=== PATIENT | male | born 1930 | race Caucasian/White ===

== ENCOUNTER 2021-04-19 21:44 | Emergency (ER) | payer SELFPAY ==
[2021-04-19] MEDS ORDERED: ONDANSETRON 4 MG/2 ML VIAL ONE (22:30)
[2021-04-19] MEDS ORDERED: MORPHINE 4 MG/ML SYR ONE (22:30)
[2021-04-19 22:43] LABS: Absolute Lymphocytes (CBC) 3.1 K/uL (0.7-4.9); Basophils % 0.7 % (0-1.3); Hematocrit 40.2 % (39.6-49.0); Lymphocytes % 35.1 % (15.3-44.8); RBC Red Blood Cell Count 4.38 M/uL (4.33-5.43)
[2021-04-19 22:51] LABS: Protime INR 1.14
[2021-04-19 23:02] LABS: ALT/SGPT 21 U/L (12-78); AST/SGOT 20 U/L (15-37); Albumin 3.2 g/dL (3.4-5.0); Alkaline Phosphatase 61 U/L (45-117); BUN Blood Urea Nitrogen 18 mg/dL (7-18); Bicarbonate 26 mmol/L (21-32); Bilirubin Direct 0.2 mg/dL (0-0.2); Bilirubin Total 0.6 mg/dL (0.2-1.0); Glucose Level 191 mg/dL (74-106); Magnesium 1.9 mg/dL (1.8-2.4); NT PRO-BNP 87 pg/mL (<450); Potassium 4.2 mmol/L (3.5-5.1); Protein, Total 6.8 g/dL (6.4-8.2); Sodium Level 132 mmol/L (136-145); Troponin (Emerg Dept Use Only) < 0.02 ng/mL (0.0-0.045)
[2021-04-20] MEDS ORDERED: ONDANSETRON 4 MG/2 ML VIAL ONE
[2021-04-20] MEDS ORDERED: NA CHLORIDE 0.9% 500 ML ONE (00:01)
[2021-04-20] MEDS ORDERED: MORPHINE 4 MG/ML SYR ONE ×2 (00:01→03:11)
--- NOTE | 2021-04-20 01:27 | EDPHYS ---
Physician Documentation [facility] Name: Jose Carrero Age: 89 yrs Sex: Male : 1930 Arrival Date: 04/19/2021 Time: 21:55 Bed 20 Private MD: ED Physician Ravinder Mcpherson HPI: 04/19 22:12 This 89 yrs old Male presents to ER via EMS with complaints of Fall. cp 22:12 Details of fall: The patient fell from an upright position, while walking, and struck a cp tile surface. Onset: The symptoms/episode began/occurred just prior to arrival. Associated injuries: The patient sustained right upper leg, decreased range of motion, deformity, painful injury. Severity of symptoms: in the emergency department the symptoms are unchanged, despite EMS interventions. Historical: - Allergies: 04/20 02:28 PENICILLINS; ea - Immunization history:: Adult Immunizations up to date. - Immunization history: Last tetanus immunization: unknown. - Social history:: Smoking status: unknown. ROS: 04/19 22:13 Constitutional: Negative for body aches, chills, fever. cp Cardiovascular: Negative for chest pain. Respiratory: Negative for cough, shortness of breath, wheezing. Abdomen/GI: Negative for abdominal pain, nausea, vomiting, and diarrhea. MS/extremity: Positive for injury or acute deformity, decreased range of motion, pain, swelling, tenderness, of the right upper leg. Neuro: Negative for altered mental status, headache, loss of consciousness, weakness. All other systems are negative. Exam: 22:17 Constitutional: The patient appears in no acute distress, alert, awake, cp non-diaphoretic, non-toxic, well developed, well nourished, obese. 22:17 Head/Face: Normocephalic, atraumatic. cp 22:17 Eyes: Periorbital structures: appear normal, Pupils: equal, round, and reactive to light and accomodation, Extraocular movements: intact throughout, Conjunctiva: normal, no exudate, no injection, Sclera: no appreciated abnormality, Lids and lashes: appear normal, bilaterally. 22:17 ENT: External ear(s): are unremarkable, Nose: is normal, Mouth: Lips: moist, Oral mucosa: moist, Posterior pharynx: Airway: no evidence of obstruction, patent. 22:17 Neck: C-spine: vertebral tenderness, is not appreciated, crepitus, is not appreciated, ROM/movement: is normal, is supple, without pain, no range of motions limitations. 22:17 Chest/axilla: Inspection: normal, Palpation: is normal, no crepitus, no tenderness. 22:17 Cardiovascular: Rate: normal, Rhythm: regular, Pulses: Pulses are 2+ in right dorsalis pedis artery and left dorsalis pedis artery. 22:17 Respiratory: the patient does not display signs of respiratory distress, Respirations: normal, no use of accessory muscles, no retractions, labored breathing, is not present, Breath sounds: are clear throughout, no decreased breath sounds. 22:17 Abdomen/GI: Inspection: obese Bowel sounds: active, all quadrants, Palpation: abdomen is soft and non-tender, in all quadrants, rebound tenderness, is not appreciated, involuntary guarding, is not appreciated. 22:17 Back: pain, is absent. 22:17 Musculoskeletal/extremity: Extremities: grossly normal except: noted in the right upper leg: decreased ROM, deformity, swelling, tenderness, the right upper leg Severe pain noted. 22:17 Neuro: Orientation: to person, place \T\ time. Mentation: is normal. 23:17 ECG was reviewed by the Attending Physician. cp Vital Signs: 22:05 BP 124 / 61; Pulse 72; Resp 20; Pulse Ox 100% ; ea 22:06 Temp 97.7; ea 23:30 BP 103 / 58; Pulse 68; Resp 18; Pulse Ox 99% on R/A; ea 04/20 00:00 BP 110 / 60; Pulse 80; Resp 18; Pulse Ox 98% on R/A; ea 01:00 BP 114 / 60; Pulse 80; Resp 16; Pulse Ox 96% ; ea 02:29 BP 108 / 61; Pulse 88; Resp 18; Pulse Ox 100% on R/A; ea 03:08 BP 123 / 64; Pulse 87; Resp 17; Temp 98; Pulse Ox 98% ; ea Vaughan Coma Score: 04/19 22:05 Eye Response: spontaneous(4). Verbal Response: oriented(5). Motor Response: obeys ea commands(6). Total: 15. 23:30 Eye Response: spontaneous(4). Verbal Response: oriented(5). Motor Response: obeys ea commands(6). Total: 15. 04/20 00:00 Eye Response: spontaneous(4). Verbal Response: oriented(5). Motor Response: obeys ea commands(6). Total: 15. 01:00 Eye Response: spontaneous(4). Verbal Response: oriented(5). Motor Response: obeys ea commands(6). Total: 15. 02:29 Eye Response: spontaneous(4). Verbal Response: oriented(5). Motor Response: obeys ea commands(6). Total: 15. 03:08 Eye Response: spontaneous(4). Verbal Response: oriented(5). Motor Response: obeys ea commands(6). Total: 15. Trauma Score (Adult): 04/19 22:05 Eye Response: spontaneous(1); Verbal Response: oriented(1); Motor Response: obeys ea commands(2); Systolic BP: > 89 mm Hg(4); Respiratory Rate: 10 to 29 per min(4); Perfecto Score: 15; Trauma Score: 12 MDM: 22:00 Patient medically screened. 04/20 01:20 Data reviewed: vital signs, nurses notes, lab test result(s), EKG, radiologic studies, cp CT scan, plain films. 01:20 Test interpretation: by ED physician or midlevel provider: ECG, plain radiologic cp studies, xrays of right femur show displaced oblique fracture of mid femur. Counseling: I had a detailed discussion with the patient and/or guardian regarding: the historical points, exam findings, and any diagnostic results supporting the discharge/admit diagnosis, lab results, radiology results, the need to transfer to another facility, [facility] does not immediately have the required specialist. Response to treatment: Pain markedly improved. 01:45 Physician consultation: acceptance by DR Rojas \T\[facility] without consult. cp 04/19 22:07 Order name: Basic Metabolic Panel cp 04/19 22:07 Order name: CBC with Diff cp 04/19 22:07 Order name: LFT's cp 04/19 22:07 Order name: Magnesium cp 04/19 22:07 Order name: NT PRO-BNP; Complete Time: 23:07 cp 04/19 22:07 Order name: PT-INR; Complete Time: 23:07 cp 04/19 21:55 Order name: XRAY Femur RIGHT ea 04/19 22:07 Order name: XRAY Pelvis cp 04/19 22:07 Order name: Troponin (emerg Dept Use Only); Complete Time: 23:07 cp 04/19 22:07 Order name: Basic Metabolic Panel; Complete Time: 23:07 EDMS 04/19 22:07 Order name: CBC with Automated Diff; Complete Time: 22:50 EDMS 04/19 22:50 Interpretation: Normal except: HGB 13.4; MPV 7.0. cp 04/19 22:07 Order name: Liver (Hepatic) Function; Complete Time: 23:07 EDMS 04/19 22:07 Order name: Magnesium; Complete Time: 23:07 EDMS 04/19 22:07 Order name: XRAY Chest (1 view) 04/19 22:07 Order name: EKG; Complete Time: 22:07 cp 04/19 22:07 Order name: Cardiac monitoring; Complete Time: 23:06 cp 04/19 22:07 Order name: EKG - Nurse/Tech; Complete Time: 23:06 cp 04/19 22:07 Order name: IV Saline Lock; Complete Time: 22:32 cp 04/19 22:07 Order name: Labs collected and sent; Complete Time: 22:32 cp 04/19 22:11 Order name: CT Traumagram (Head C Spine CAP W Con) 04/19 22:07 Order name: O2 Per Protocol; Complete Time: 22:32 cp 04/19 22:07 Order name: O2 Sat Monitoring; Complete Time: 22:32 cp 04/19 22:17 Order name: Splint: right long leg; Complete Time: 00:51 cp 04/19 23:50 Order name: Khan; Complete Time: 00:51 cp EC/28 23:17 Rate is 70 beats/min. Rhythm is regular. CA interval is normal. QRS interval is normal. cp QT interval is normal. Interpreted by me. Reviewed by me. Administered Medications: 22:12 CANCELLED (Duplicate Order): Zofran (Ondansetron) 4 mg IVP once; over 2 minutes ea 22:13 Not Given (Duplicate Order): morphine 4 mg IVP once; RASS on ADMIN: Combtv4, Very ea Agttd3, Agttd2, Rstlss1, AlertClm0, Drwsy-1, Lt Sdtn-2, Mod Sdtn-3, Dp Sdtn-4, UnArsble-5 22:32 Drug: morphine 4 mg Route: IVP; Site: left antecubital; 04/20 01:33 Follow up: Response: No adverse reaction 04/19 22:32 Drug: Zofran (Ondansetron) 4 mg Route: IVP; Site: left antecubital; ea 04/20 01:34 Follow up: Response: No adverse reaction 04/19 23:44 Drug: NS 0.9% 500 ml Route: IV; Rate: 250 ml/hr; Site: left antecubital; ea 04/20 01:34 Follow up: Response: No adverse reaction; IV Status: Completed infusion; IV Intake: ea 250ml 04/19 23:45 Drug: Zofran (Ondansetron) 4 mg Route: IVP; Site: left antecubital; 04/20 01:34 Follow up: Response: No adverse reaction 04/19 23:45 Drug: morphine 4 mg Route: IVP; Site: left forearm; 04/20 01:34 Follow up: Response: No adverse reaction 03:07 Drug: morphine 4 mg Route: IVP; Site: left antecubital; ea 03:07 Drug: NS 0.9% 1000 ml Route: IV; Rate: 50 ml/hr; Site: left antecubital; Disposition: 02:06 Chart complete. 07:46 Co-signature as Attending Physician, Ravinder Mcpherson MD. 7 Disposition: 04/20/21 01:26 Transfer ordered to [facility]. Diagnosis is Displaced oblique fracture of shaft of right femur. - Reason for transfer: Higher level of care. - Accepting physician is DR Rojas. - Condition is Stable. - Problem is new. - Symptoms have improved. Signatures: Dispatcher [employer] EDMS Zafar Mohan PA PA cp Antunez, Elena, RN RN ea Holmes, Maurice, MD MD 7 Corrections: (The following items were deleted from the chart) 04/19 22:12 22:07 Zofran (Ondansetron) 4 mg IVP once; over 2 minutes ordered. marjan arreguin 04/20 02:00 01:26 04/20/2021 01:26 Transfer ordered to [facility]. Diagnosis is cp Displaced oblique fracture of shaft of right femur. Reason for transfer: Higher level of care. Accepting physician is Doctor. Condition is Stable. Problem is new. Symptoms have improved. cp 02:40 01:40 CORONAVIRUS+ ordered. EDMS EDMS 03:22 02:00 04/20/2021 01:26 Transfer ordered to [facility]. Diagnosis is ea Displaced oblique fracture of shaft of right femur. Reason for transfer: Higher level of care. Accepting physician is DR Rojas. Condition is Stable. Problem is new. Symptoms have improved. cp
--- NOTE | 2021-04-20 01:27 | ER ---
Nurse's Notes [facility] Name: Jose Carrero Age: 89 yrs Sex: Male : 1930 Arrival Date: 04/19/2021 Time: 21:55 Bed 20 Private MD: Diagnosis: Displaced oblique fracture of shaft of right femur Presentation: 04/19 21:56 Chief complaint: EMS states: Reports pt fell at home while standing on the bath tub. ea EMS reports pulses present, deformity noted to right leg. 100mcg of fentanyl per EMS. Coronavirus screen: At this time, the client does not indicate any symptoms associated with coronavirus-19. Ebola Screen: No symptoms or risks identified at this time. Initial Sepsis Screen: Does the patient meet any 2 criteria? No. Patient's initial sepsis screen is negative. Does the patient have a suspected source of infection? No. Patient's initial sepsis screen is negative. Risk Assessment: Do you want to hurt yourself or someone else? Patient reports no desire to harm self or others. Onset of symptoms was April 19, 2021. 21:56 Method Of Arrival: EMS: [facility] ea 21:56 Acuity: MARIAM 3 ea 22:06 Care prior to arrival: None. Mechanism of Injury: Fall from standing position. Trauma ea event details: Injury occurred in the [facility], Injury occurred: at home. Injury occurred: April 19, 2021 Injury occurred at: 22:06. Trauma Activation: Alert Physician: ED Physician; Name: ; Notified At: ; Arrived At: Physician: General Surgeon; Name: ; Notified At: ; Arrived At: Physician: Radiology; Name: ; Notified At: ; Arrived At: Physician: Respiratory; Name: ; Notified At: ; Arrived At: Physician: Lab; Name: ; Notified At: ; Arrived At: Historical: - Allergies: 04/20 02:28 PENICILLINS; ea - Immunization history:: Adult Immunizations up to date. - Immunization history: Last tetanus immunization: unknown. - Social history:: Smoking status: unknown. Screenin/28 21:56 Abuse screen: Denies threats or abuse. Nutritional screening: No deficits noted. ea Tuberculosis screening: No symptoms or risk factors identified. Fall Risk None identified. Primary Survey: 22:03 NO uncontrolled hemorrhage observed. Breathing/Chest: Respiratory pattern: regular, ea Respiratory effort: spontaneous, unlabored. Circulation: Skin color: pink, Skin temperature: warm. Disability Alert. Exposure/Environment: Obvious injury(ies) are noted at this time: swelling to right leg, extremity noted to be shorter than left. 23:00 Reassessment Airway Airway Patent Breathing/Chest Respiratory pattern Regular ea Respiratory effort Spontaneous Unlabored Disability Alert. Secondary Survey: 23:07 Musculoskeletal: Swelling present in right quadriceps. Injury Description: Deformity ea sustained to right quadriceps. Assessment: 21:56 General: Appears uncomfortable, Behavior is appropriate for age. Pain: Complains of ea pain in right leg. Neuro: Level of Consciousness is awake, alert, obeys commands, Oriented to person, place, time. Respiratory: Airway is patent Respiratory effort is even, unlabored, Respiratory pattern is regular, symmetrical. Derm: Skin is pink, warm \T\ dry. Musculoskeletal: Bony deformity noted of right quadriceps Swelling present in right quadriceps shortened right leg. 22:30 Reassessment: Patient and/or family updated on plan of care and expected duration. Pain ea level reassessed. Patient is alert, oriented x 3, equal unlabored respirations, skin warm/dry/pink. 23:50 Reassessment: Patient and/or family updated on plan of care and expected duration. Pain ea level reassessed. Patient is alert, oriented x 3, equal unlabored respirations, skin warm/dry/pink. 04/20 00:30 Reassessment: Patient and/or family updated on plan of care and expected duration. Pain ea level reassessed. Patient is alert, oriented x 3, equal unlabored respirations, skin warm/dry/pink. 01:18 Reassessment: Patient and/or family updated on plan of care and expected duration. Pain ea level reassessed. Patient is alert, oriented x 3, equal unlabored respirations, skin warm/dry/pink. 02:27 Reassessment: Patient and/or family updated on plan of care and expected duration. Pain ea level reassessed. Patient is alert, oriented x 3, equal unlabored respirations, skin warm/dry/pink. Report called to Donnell LAW at [facility]. 03:08 Reassessment: Patient and/or family updated on plan of care and expected duration. Pain ea level reassessed. Patient is alert, oriented x 3, equal unlabored respirations, skin warm/dry/pink. [facility] at facility for transport. Pt left ED via stretcher per EMS pt tolerating well. Vital Signs: 04/19 22:05 BP 124 / 61; Pulse 72; Resp 20; Pulse Ox 100% ; ea 22:06 Temp 97.7; ea 23:30 BP 103 / 58; Pulse 68; Resp 18; Pulse Ox 99% on R/A; ea 04/20 00:00 BP 110 / 60; Pulse 80; Resp 18; Pulse Ox 98% on R/A; ea 01:00 BP 114 / 60; Pulse 80; Resp 16; Pulse Ox 96% ; ea 02:29 BP 108 / 61; Pulse 88; Resp 18; Pulse Ox 100% on R/A; ea 03:08 BP 123 / 64; Pulse 87; Resp 17; Temp 98; Pulse Ox 98% ; ea Perfecto Coma Score: 04/19 22:05 Eye Response: spontaneous(4). Verbal Response: oriented(5). Motor Response: obeys ea commands(6). Total: 15. 23:30 Eye Response: spontaneous(4). Verbal Response: oriented(5). Motor Response: obeys ea commands(6). Total: 15. 04/20 00:00 Eye Response: spontaneous(4). Verbal Response: oriented(5). Motor Response: obeys ea commands(6). Total: 15. 01:00 Eye Response: spontaneous(4). Verbal Response: oriented(5). Motor Response: obeys ea commands(6). Total: 15. 02:29 Eye Response: spontaneous(4). Verbal Response: oriented(5). Motor Response: obeys ea commands(6). Total: 15. 03:08 Eye Response: spontaneous(4). Verbal Response: oriented(5). Motor Response: obeys ea commands(6). Total: 15. Trauma Score (Adult): 04/19 22:05 Eye Response: spontaneous(1); Verbal Response: oriented(1); Motor Response: obeys ea commands(2); Systolic BP: > 89 mm Hg(4); Respiratory Rate: 10 to 29 per min(4); Perfecto Score: 15; Trauma Score: 12 ED Course: 21:55 Patient arrived in ED. ea 21:58 Zafar Mohan PA is PHCP. cp 21:58 Ravinder Mcpherson MD is Attending Physician. cp 21:59 Triage completed. ea 21:59 Patient has correct armband on for positive identification. Bed in low position. Call ea light in reach. Side rails up X2. 21:59 Arm band placed on right wrist. Patient placed in an exam room, on a stretcher, on ea pulse oximetry. 22:06 Patient maintains SpO2 saturation greater than 95% on room air. ea 22:06 Thermoregulation: warm blanket given to patient. ea 22:10 Maintain EMS IV. Dressing intact. Good blood return noted. Site clean \T\ dry. Gauge \T\ ea site: 20G right forearm. 22:29 XRAY Femur RIGHT In Process Unspecified. EDMS 22:29 XRAY Pelvis In Process Unspecified. EDMS 22:29 XRAY Chest (1 view) In Process Unspecified. EDMS 22:58 Cinda Barger, RN is Primary Nurse. iw 23:47 CT Traumagram (Head C Spine CAP W Con) In Process Unspecified. EDMS 04/20 00:50 Orthoglass splint: Posterior long leg splint applied on right leg. Khan cath inserted, dh4 using sterile technique, 18 Fr., by me, balloon inflated, Patient tolerated well. 01:35 Initiated transfer at [facility] with Pema Ch. tt3 01:42 Pema called back with admin approval. The pt is going to [facility] ER. tt3 The accepting physician is Dr. Rojas. Nurse to call report to . Face sheet and MOT to be faxed to per Pema's request. 02:27 No provider procedures requiring assistance completed. Patient transferred, IV remains ea in place. Administered Medications: 04/19 22:12 CANCELLED (Duplicate Order): Zofran (Ondansetron) 4 mg IVP once; over 2 minutes ea 22:13 Not Given (Duplicate Order): morphine 4 mg IVP once; RASS on ADMIN: Combtv4, Very ea Agttd3, Agttd2, Rstlss1, AlertClm0, Drwsy-1, Lt Sdtn-2, Mod Sdtn-3, Dp Sdtn-4, UnArsble-5 22:32 Drug: morphine 4 mg Route: IVP; Site: left antecubital; ea 04/20 01:33 Follow up: Response: No adverse reaction ea 04/19 22:32 Drug: Zofran (Ondansetron) 4 mg Route: IVP; Site: left antecubital; ea 04/20 01:34 Follow up: Response: No adverse reaction ea 04/19 23:44 Drug: NS 0.9% 500 ml Route: IV; Rate: 250 ml/hr; Site: left antecubital; ea 04/20 01:34 Follow up: Response: No adverse reaction; IV Status: Completed infusion; IV Intake: ea 250ml 04/19 23:45 Drug: Zofran (Ondansetron) 4 mg Route: IVP; Site: left antecubital; ea 04/20 01:34 Follow up: Response: No adverse reaction ea 04/19 23:45 Drug: morphine 4 mg Route: IVP; Site: left forearm; ea 04/20 01:34 Follow up: Response: No adverse reaction ea 03:07 Drug: morphine 4 mg Route: IVP; Site: left antecubital; ea 03:07 Drug: NS 0.9% 1000 ml Route: IV; Rate: 50 ml/hr; Site: left antecubital; ea Intake: 01:34 IV: 250ml; Total: 250ml. ea Outcome: 01:26 ER care complete, transfer ordered by MD. cp 01:33 Patient's length of stay in the Emergency Department was greater than 2 hours. Pt being ea transferedPatient's length of stay extended due to 02:28 Instructed on the need for transfer, Demonstrated understanding of instructions. ea 03:08 Transferred by ground EMS to [facility], Transfer form completed. ea 03:08 Condition: stable 03:22 Patient left the ED. ea Signatures: Dispatcher [employer] EDMS Cinda Barger RN RN iw Page, Corey, PA PA cp Antunez, Elena, RN RN ea Huhn, Donald dh4 Saurabh, Derek tt3
[2021-04-20] MEDS ORDERED: NA CHLORIDE 0.9% 1,000 ML ONE (03:11)
[2021-04-20 03:45] VITALS: BP 123/64; TEMP 98; O2SAT 98
--- NOTE | 2021-04-20 07:46 | EKG ---
Test Date: 2021-04-19 Test Time: 23:10:06 Bean Weigher: AVE MEASUREMENT RESULTS: Intervals: Rate: 70 CA: 174 QRSD: 88 QT: 394 QTc: 425 Marydel: P: 39 CA: 174 QRS: 7 T: 46 INTERPRETIVE STATEMENTS: Normal sinus rhythm Nonspecific T wave abnormality Abnormal ECG No previous ECG available for comparison Electronically Signed On 04-20-21 07:46:06 CDT by Nishant Schneider
--- NOTE | 2021-04-20 08:29 | RAD REPORT ---
EXAM DESCRIPTION: Ricardo Single View04/19/2021 10:29 pm CLINICAL HISTORY: Chest pain COMPARISON: none FINDINGS: The lungs appear clear of acute infiltrate. The heart is normal size IMPRESSION: No acute abnormalities displayed
--- NOTE | 2021-04-20 08:33 | RAD REPORT ---
EXAM DESCRIPTION: RAD - Pelvis - 04/19/2021 10:28 pm CLINICAL HISTORY: Pelvic pain status post injury FINDINGS: No fracture or dislocation is seen. 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
--- NOTE | 2021-04-20 08:35 | RAD REPORT ---
EXAM DESCRIPTION: RAD - Femur Right - 04/19/2021 10:28 pm CLINICAL HISTORY: Leg pain FINDINGS: Markedly displaced oblique fracture distal femur with overriding of the fracture fragments . Angulation present at the fracture site. The fracture line extends to the anterior superior aspect of femoral component of a knee prosthesis
--- NOTE | 2021-04-20 21:48 | RAD REPORT ---
EXAM DESCRIPTION: CT - Head C Spine Cap Rosalba Christina - 04/20/2021 6:32 am CLINICAL HISTORY: 89 years Male fall in tub TECHNIQUE: Contiguous axial images obtained through the brain and cervical spine without intravenous contrast. Contiguous axial images obtained through the chest, abdomen, and pelvis following IV contr ast administration. Coronal and sagittal reformatted images provided. This CT exam was performed according to our departmental dose-optimization program, which includes on e or more of the following dose reduction techniques: automated exposure control, adjustment of the m A and/or kV according to patient size, and/or use of iterative reconstruction technique. COMPARISON: No prior exams provided for comparison. FINDINGS: There is no acute skull fracture, intracranial hemorrhage, extraaxial collection, or acute transcortical infarction. Scattered foci of low attenuation within the periventricular and subcortical white matter are nonspec ific but compatible with chronic microvascular disease. The ventricles are normal in size and conto ur without mass effect or midline shift. The visualized paranasal sinuses, tympanomastoid cavities, a nd orbits are normal. There is no acute cervical fracture or spondylolisthesis. There are bulky anterior osteophytes throughout the cervical spine with scattered degenerative disc d isease and facet arthrosis. No aggressive osseous lesion. No prevertebral or paraspinal soft tissue s welling. There are bilateral thyroid nodules, measuring up to 2.3 cm on the right. At C2-C3, there is slight left neural foraminal narrowing. At C3-C4, there is flattening of the ventral aspect of the thecal sac with moderate left neural steve inal stenosis. At C4-C5, there is a central disc protrusion resulting in moderate central canal stenosis with modera te left neural foraminal stenosis. At C5-C6, there is mild central canal stenosis with mild bilateral neural foraminal stenosis. At C6-C7 and C7-T1, there is no central canal or neural foraminal stenosis. There are is no acute fracture in the chest. There is smooth ankylosis throughout the thoracic spine suggestive of ankylosing spondylitis. There is no acute thoracic spine fracture or visualized stenosi s. There is no mediastinal hematoma, pericardial effusion, pleural effusion, or pneumothorax. The heart is normal in size and there is no thoracic aortic aneurysm or dissection. Aside from mild dependent a telectasis, the lungs are clear without focal consolidation. The central airways are patent. No lymph adenopathy in the chest. There are no acute lumbar or pelvic fractures. 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 Fusion of both sacroiliac joints. 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 Prior cholecystectomy without biliary dilatation. The liver, pancreas, spleen, adrenal glands, right kidney, and urinary bladder demonstrate no acute f indings. Nonobstructing calculus in the lower pole of the left kidney measures 1 cm. Scattered colonic diverticuli without diverticulitis. There is no bowel obstruction or wall thickenin g. There is no retroperitoneal hemorrhage, ascites, or free intraperitoneal air. No abdominal aortic aneurysm. IMPRESSION: No acute injury in the brain, cervical spine, chest, abdomen, or pelvis. Mild chronic microvascular changes in the brain. Chronic degenerative changes throughout the spine with tiny suggestive of underlying ankylosing spond ylitis. Central disc protrusion resulting in moderate central canal and moderate left neural foramina l stenosis at C4-C5. 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 No clubbing intrarenal calculus on the left. Colonic diverticulosis without diverticulitis. Electronically signed by: Viviana Masters MD 04/20/2021 12:06 AM CDT Due to temporary technical issues with the PACS/Fluency reporting system, reports are being signed by the in house radiologists without review as a courtesy to insure prompt reporting. The interpreting radiologist is fully responsible for the content of the report.
--- NOTE | 2021-04-24 12:09 | EKG ---
Test Date: 2021-04-20 Test Time: 02:14:27 Diaper Folder: STEPHANIE MEASUREMENT RESULTS: Intervals: Rate: 93 OK: 138 QRSD: 80 QT: 332 QTc: 412 [place]: P: 76 OK: 138 QRS: 79 T: 64 INTERPRETIVE STATEMENTS: Normal sinus rhythm Cannot rule out Anterior infarct, age undetermined Abnormal ECG Compared to ECG 04/19/2021 23:10:06 Myocardial infarct finding now present T-wave abnormality no longer present Electronically Signed On 04-24-21 11:55:35 CDT by Nishant Schneider
== END 2021-04-20 03:22 | disposition short-term general hospital (02) ==
LOC: ER 21:44
DX: S72.331A Displaced oblique fracture of shaft of right femur, initial encounter for closed fracture (principal); W19.XXXA Unspecified fall, initial encounter
CPT/HCPCS: 36415; 51702; 70450; 71045; 71260; 72125; 72170; 74177; 80048; 80076; 83735; 83880; 84484; 85025; 85610; 93005; 99285; G0390; J2405; J7030; Q9967; U0003